=== PATIENT | female | born 1990 | race Caucasian/White ===

== ENCOUNTER → 2020-09-12 | Outpatient (CLI) | payer OTHER ==
[~2020-09-12] VITALS: Ht 167.6 cm; Wt 102.1 kg
[~2020-09-12] MED LIST: COLACE 100MG C100 MG PO; FLOMAX 0.4 MG0.4 MG PO; IBUPROFEN600 MG PO; IRON325 M1 PO; LORTAB 5-325 M1 EACH PO; NORCO 5-325 TA1 EACH PO; OMNICEF 300 MG300 MG PO; PHENERGAN 12.12.5 M1 PO; PHENERGAN 25 MG25 M1 PO; PROTONIX40 MG PO; VITAFOL-OB+DHA1 EACH PO
== END ==
LOC: OPSV 09:00
DX: G35 Multiple sclerosis (principal)
CPT/HCPCS: 96360; 96365; 96366; 96368; 96375; J2350; J2930; J7030

== ENCOUNTER → 2020-09-26 | Outpatient (CLI) | payer OTHER ==
[~2020-09-26] VITALS: Ht 167.6 cm; Wt 102.1 kg
== END ==
LOC: OPSV 08:59
DX: G35 Multiple sclerosis (principal)
CPT/HCPCS: 96361; 96365; 96366; 96367; 96375; J1200; J2350; J2930; J7030

== ENCOUNTER → 2021-03-27 | Outpatient (CLI) | payer OTHER ==
[~2021-03-27] VITALS: Ht 167.6 cm; Wt 102.1 kg
== END ==
LOC: OPSV 08:49
DX: G35 Multiple sclerosis (principal)
CPT/HCPCS: 96360; 96365; 96366; 96375; J1200; J2350; J2930; J7030

== ENCOUNTER → 2021-09-26 | Outpatient (CLI) | payer OTHER ==
[~2021-09-26] VITALS: Ht 167.6 cm; Wt 102.1 kg
[2021-09-26 09:40] LABS: HEMOGLOBIN 11.9 gm/dl (12.3-15.3); RED BLOOD COUNT 4.02 M/UL (4.00-5.10); WHITE BLOOD COUNT 4.6 K/UL (4.5-11.0)
[2021-09-26 10:10] LABS: BUN/CREATININE RATIO 29 (0-10)
[2021-09-27 07:12] LABS: VITAMIN D, 25-HYDROXY 35.1 ng/mL (30.0-100.0)
[2021-09-29 14:15] LABS: % CD19+ LYMPHS 0.2 % (3.3-25.4); % NK (CD56/16) 20.2 % (1.4-19.4); AB NK (CD56/16) 202 /uL (24-406); ABS.CD19+ LYMPHS 2 /uL (12-645); LYMPHS 16 % (Not Estab.); WBC 6.1 x10E3/uL (3.4-10.8)
== END | disposition left against medical advice (07) ==
LOC: OPSV 08:59
PROVIDERS: Psychiatry & Neurology Clinical Neurophysiology
DX: G35 Multiple sclerosis (principal)
CPT/HCPCS: 80053; 82784; 84443; 85025; 96361; 96375; 96413; 96415; J1200; J2350; J2930; J7030